=== PATIENT | male | born 1975 | race Caucasian/White ===

== ENCOUNTER 2016-10-15 16:50 | Emergency (ER) | payer OTHER ==
[~2016-10-15] VITALS: Ht 182.9 cm; Wt 97.5 kg
[2016-10-15] MEDS ORDERED: ADENOSINE 6 MG/2 ML INJ IV ONE (17:02)
[2016-10-15] MEDS ORDERED: DILTIAZEM HCL 25 MG/5 ML VIAL IV ONE ×2 (17:09→17:45)
[2016-10-15] MEDS ORDERED: SODIUM CHLORIDE 0.9% 1,000 ML IVB ONE (18:07)
[2016-10-15] MEDS ORDERED: ASPirin 81 mg TAB PO ONE (18:15)
[2016-10-15 18:18] LABS: Basophils # (auto) 0 uL; Basophils % (auto) 0.4 % (0.0-2.0); CONDITION Y; Eosinophils # (auto) 0.1 uL; Eosinophils % (auto) 0.9 % (0.0-7.0); Hematocrit 45.9 % (41.0-53.0); Hemoglobin 15.7 g/dL (13.5-17.5); Lymphocytes # (auto) 3.3 uL; Lymphocytes % (auto) 31.9 % (10.0-50.0); Mean Corpuscular Hemoglobin 31.6 pg (28.0-32.0); Mean Corpuscular Hgb Conc. 34.3 g/dL (32.0-36.0); Mean Corpuscular Volume 92.1 fL (80.0-100.0); Mean Platelet Volume 8.7 fL (7.4-10.4); Monocytes # (auto) 0.7 uL; Monocytes % (auto) 6.9 % (0.0-12.0); Neutrophils # (auto) 6.2 uL; Neutrophils % (auto) 59.9 % (37.0-80.0); Platelet Count (auto) 285 10^3/uL (140-450); Red Cell Distribution Width 13.8 % (11.6-16.0); White Blood Cell 10.3 10^3/uL (4.4-10.8)
[2016-10-15 18:35] LABS: Albumin 3.3 g/dL (3.4-5.0); BUN/Creatinine Ratio 20.8; Bilirubin, Total 0.3 mg/dL (0.2-1.0); Calcium 8.4 mg/dL (8.5-10.1); Magnesium 2.4 mg/dL (1.6-2.6)
[2016-10-15 18:54] LABS: Potassium 4.4 mmol/L (3.5-5.1)
[2016-10-15 23:02] LABS: Urine RBC None Seen /hpf (0 - 3)
[2016-10-15 23:16] LABS: Urine Bilirubin Negative (Negative); Urine Blood Negative /uL (Negative); Urine Color Yellow (Yellow); Urine Glucose Normal (Normal); Urine Ketone Negative (Negative); Urine Mucus FEW (None Seen); Urine Nitrite Negative (Negative); Urine pH 6.5 (5.0-8.0)
[2016-10-16 02:15] VITALS: BP 123/73
== END 2016-10-16 02:09 | disposition home or self-care (01) ==
LOC: ER 16:54
DX: I47.1 Supraventricular tachycardia (principal); E78.5 Hyperlipidemia, unspecified
CPT/HCPCS: 36415; 71010; 80053; 80307; 80320; 81001; 83735; 84443; 84484; 85025; 85379; 93005; 94761; 96361; 96374; 99285; J0153

== ENCOUNTER 2016-10-16 09:36 | Emergency (ER) | payer OTHER ==
[~2016-10-16] VITALS: Ht 182.9 cm; Wt 113.4 kg
[2016-10-16] MEDS ORDERED: DILTIAZEM HCL 25 MG/5 ML VIAL IV ONE ×3 (09:44→14:45)
[2016-10-16] MEDS ORDERED: CALCIUM GLUC 4.65 MEQ/10ML 10 ML IV ONE (10:01)
[2016-10-16] MEDS ORDERED: CALCIUM GLUC 4.65meq/50ml D5AE 50 ML IV ONE ×2 (10:01→12:15)
[2016-10-16 11:22] LABS: Basophils # (auto) 0 uL; Basophils % (auto) 0.3 % (0.0-2.0); CONDITION Y; Eosinophils # (auto) 0.1 uL; Eosinophils % (auto) 1.1 % (0.0-7.0); Hematocrit 39.6 % (41.0-53.0); Hemoglobin 13.9 g/dL (13.5-17.5); Lymphocytes # (auto) 1.9 uL; Lymphocytes % (auto) 15.1 % (10.0-50.0); Mean Corpuscular Hemoglobin 31.6 pg (28.0-32.0); Mean Corpuscular Hgb Conc. 35.1 g/dL (32.0-36.0); Mean Platelet Volume 7.7 fL (7.4-10.4); Monocytes # (auto) 0.7 uL; Monocytes % (auto) 5.4 % (0.0-12.0); Neutrophils # (auto) 9.7 uL; Neutrophils % (auto) 78.1 % (37.0-80.0); Platelet Count (auto) 246 10^3/uL (140-450); Red Cell Distribution Width 13.7 % (11.6-16.0); White Blood Cell 12.4 10^3/uL (4.4-10.8)
[2016-10-16 11:47] LABS: Albumin 2.9 g/dL (3.4-5.0); BUN/Creatinine Ratio 17.2; Bilirubin, Total 0.3 mg/dL (0.2-1.0); Calcium 7.9 mg/dL (8.5-10.1); Potassium 4.2 mmol/L (3.5-5.1)
[2016-10-16 12:06] LABS: Urine Bilirubin Negative (Negative); Urine Blood Negative /uL (Negative); Urine Color Yellow (Yellow); Urine Glucose Normal (Normal); Urine Ketone Negative (Negative); Urine Nitrite Negative (Negative); Urine RBC <1 /hpf (0 - 3); Urine Urobilinogen Normal (Negative)
[2016-10-16] MEDS ORDERED: LORazepam 2MG/ML-1ML VIAL IV ONE (14:12)
[2016-10-16] MEDS ORDERED: LORazepam 2MG/ML-1ML VIAL ONE (14:12)
[2016-10-16 17:28] VITALS: BP 114/81
== END 2016-10-16 17:39 | disposition short-term general hospital (02) ==
LOC: ER 09:36
DX: I47.1 Supraventricular tachycardia (principal); R74.8 Abnormal levels of other serum enzymes; I20.9 Angina pectoris, unspecified; E44.0 Moderate protein-calorie malnutrition; Z68.33 Body mass index [BMI] 33.0-33.9, adult; E78.5 Hyperlipidemia, unspecified
CPT/HCPCS: 36415; 80053; 80307; 81001; 83735; 84484; 85025; 93005; 96374; 96375; 96376; 99285; J0610; J2060; J7030

== ENCOUNTER 2016-10-20 17:44 | Emergency (ER) | payer OTHER ==
[~2016-10-20] VITALS: Ht 182.9 cm; Wt 97.5 kg
[2016-10-20] MEDS ORDERED: SODIUM CHLORIDE 0.9% 1,000 ML IV ONE (17:53)
[2016-10-20] MEDS ORDERED: ADENOSINE 6 MG/2 ML INJ IV ONE ×3 (18:00→18:30)
[2016-10-20 19:07] LABS: Basophils # (auto) 0.1 uL; Basophils % (auto) 0.7 % (0.0-2.0); CONDITION Y; Eosinophils # (auto) 0.2 uL; Eosinophils % (auto) 1.8 % (0.0-7.0); Hematocrit 50.2 % (41.0-53.0); Hemoglobin 16.9 g/dL (13.5-17.5); Lymphocytes # (auto) 3.1 uL; Lymphocytes % (auto) 23.8 % (10.0-50.0); Mean Corpuscular Hgb Conc. 33.8 g/dL (32.0-36.0); Mean Corpuscular Volume 91.8 fL (80.0-100.0); Mean Platelet Volume 8.2 fL (7.4-10.4); Monocytes # (auto) 1.1 uL; Monocytes % (auto) 8.4 % (0.0-12.0); Neutrophils # (auto) 8.4 uL; Neutrophils % (auto) 65.3 % (37.0-80.0); Platelet Count (auto) 383 10^3/uL (140-450); Red Cell Distribution Width 13.8 % (11.6-16.0); White Blood Cell 12.9 10^3/uL (4.4-10.8)
[2016-10-20 19:48] LABS: Anion Gap 9 (5-15); BUN/Creatinine Ratio 16.1; Blood Urea Nitrogen 19 mg/dL (7-18); Carbon Dioxide 27 mmol/L (21-32); Chloride 104 mmol/L (98-107); GFR African American 88 mL/min; GFR Non-African American 73 mL/min; Glucose 83 mg/dL (74-106); Potassium 5.3 mmol/L (3.5-5.1); Sodium 140 mmol/L (136-145)
[2016-10-20 19:49] LABS: Albumin 3.8 g/dL (3.4-5.0); Alkaline Phosphatase 97 U/L (45-117); Aspartate Aminotransferase 29 U/L (15-37); Bilirubin, Total 0.3 mg/dL (0.2-1.0); Calcium 9.6 mg/dL (8.5-10.1); Magnesium 2.7 mg/dL (1.6-2.6); Total Protein 7.4 g/dL (6.4-8.2)
[2016-10-20 23:00] VITALS: BP 133/83
== END 2016-10-20 23:13 | disposition short-term general hospital (02) ==
LOC: ER 17:46
DX: I47.1 Supraventricular tachycardia (principal); E78.5 Hyperlipidemia, unspecified
CPT/HCPCS: 36415; 80053; 83735; 84484; 85025; 93005; 96361; 96374; 99291; J0153; J7030

== ENCOUNTER 2022-05-09 00:56 | Emergency (ER) | payer OTHER ==
[~2022-05-09] VITALS: Ht 182.9 cm; Wt 100.0 kg
[2022-05-09] MEDS ORDERED: MORPHINE SULFATE 4 MG/ML SYR/VIAL IV ONE ×2 (01:45→08:15)
[2022-05-09] MEDS ORDERED: LACTATED RINGER'S 1,000 ML IV ONE (01:45)
[2022-05-09] MEDS ORDERED: ONDANSETRON HCL 4 MG/2 ML VIAL IV ONE ×3 (01:45→08:15)
[2022-05-09 02:13] LABS: Basophils # (auto) 0 10 ^3/uL (0-0.2); Basophils % (auto) 0.3 % (0.0-2.0); Eosinophils # (auto) 0 10 ^3/uL (0-0.8); Eosinophils % (auto) 0.3 % (0.0-7.0); Hematocrit 43.2 % (41.0-53.0); Hemoglobin 14.8 g/dL (13.5-17.5); Lymphocytes # (auto) 1.2 10 ^3/uL (0.4-5.4); Lymphocytes % (auto) 6.7 % (10.0-50.0); Mean Corpuscular Hemoglobin 31.3 pg (28.0-32.0); Mean Corpuscular Hgb Conc. 34.3 g/dL (32.0-36.0); Mean Corpuscular Volume 91.3 fL (80.0-100.0); Monocytes # (auto) 0.9 10 ^3/uL (0-1.3); Monocytes % (auto) 5.4 % (0.0-12.0); Neutrophils % (auto) 87.3 % (37.0-80.0); Nucleated Red Blood Cells % 0.1 %; Red Blood Cells 4.73 10^6/uL (4.5-5.90); Red Cell Distribution Width 13.2 % (11.8-14.3); White Blood Cell 17.2 10^3/uL (4.4-10.8)
[2022-05-09 02:21] LABS: Alanine Aminotransferase 49 U/L (16-61); Albumin 3.6 g/dL (3.4-5.0); Anion Gap 7 (5-15); Aspartate Aminotransferase 20 U/L (15-37); BUN/Creatinine Ratio 33.7; Blood Alcohol < 3.0 mg/dL (0-5); Blood Urea Nitrogen 30 mg/dL (7-18); Calcium 9.1 mg/dL (8.5-10.1); Carbon Dioxide 26 mmol/L (21-32); Chloride 107 mmol/L (98-107); GFR African American 118 mL/min; GFR Non-African American 98 mL/min; Glucose 143 mg/dL (74-106); INR 1.02 (0.9-1.15); Lipase 91 U/L (73-393); Partial Thromboplastin Time 23.9 sec (24.6-33.4); Potassium 3.9 mmol/L (3.5-5.1); Sodium 140 mmol/L (136-145)
[2022-05-09 02:24] LABS: Alkaline Phosphatase 71 U/L (45-117); Bilirubin, Total 0.3 mg/dL (0.2-1.0); Total Protein 6.8 g/dL (6.4-8.2)
[2022-05-09] MEDS ORDERED: HYDROmorphone HCL 2 MG/ML VL/or syr IV ONE (04:00)
[2022-05-09 06:45] LABS: Alcohol, Urine < 3.0 mg/dL (0-10); Amphetamine Screen, Urine POSITIVE (NEGATIVE); Barbiturate Scree,Urine NEGATIVE (NEGATIVE); Benzodiazephine Screen, Urine NEGATIVE (NEGATIVE); Cannabinoid Screen, Urine NEGATIVE (NEGATIVE); Cocaine Screen, Urine NEGATIVE (NEGATIVE)
[2022-05-09 06:51] LABS: Urine Bacteria NONE SEEN /hpf (None Seen); Urine Blood Negative /uL (Negative); Urine Mucus FEW (None Seen); Urine Specific Gravity 1.025 (1.001-1.035); Urine WBC <1 /hpf (0 - 3)
[2022-05-09 06:53] LABS: Opiate Scree,Urine POSITIVE (NEGATIVE); Phencyclidine Screen, Urine NEGATIVE (NEGATIVE)
[2022-05-09 09:40] VITALS: BP 132/76
== END 2022-05-09 10:39 | disposition short-term general hospital (02) ==
LOC: EDBD 00:56 → ER 00:58
DX: S72.302A Unspecified fracture of shaft of left femur, initial encounter for closed fracture (principal); D72.829 Elevated white blood cell count, unspecified; R79.89 Other specified abnormal findings of blood chemistry; E86.0 Dehydration; Z20.822 Contact with and (suspected) exposure to COVID-19; Z79.899 Other long term (current) drug therapy; W01.0XXA Fall on same level from slipping, tripping and stumbling without subsequent striking against object, initial encounter; Y93.89 Activity, other specified; Y92.89 Other specified places as the place of occurrence of the external cause; Y99.8 Other external cause status
CPT/HCPCS: 36415; 73552; 73560; 73590; 80053; 80307; 80320; 81001; 82553; 83690; 85025; 85610; 85730; 87426; 96361; 96374; 96375; 96376; 99285; J1170; J2270; J2405; J7030